=== PATIENT | male | born 1970 | race Caucasian/White ===

== ENCOUNTER 2017-09-23 05:07 | Outpatient (CLI) | payer BC | END 2017-09-23 23:59 | disposition home or self-care (01) | LOC: DIABETIC 05:07 | PROVIDERS: ATTEND Specialist | DX: E11.8 Type 2 diabetes mellitus with unspecified complications (principal) | CPT/HCPCS: G0108 ==

== ENCOUNTER 2017-12-16 03:37 | Outpatient (CLI) | payer BC | END 2017-12-16 23:59 | disposition home or self-care (01) | LOC: DIABETIC 03:37 | PROVIDERS: ATTEND Specialist | DX: E11.9 Type 2 diabetes mellitus without complications (principal) | CPT/HCPCS: G0108 ==

== ENCOUNTER 2018-03-10 01:07 | Outpatient (CLI) | payer BC | END 2018-03-10 23:59 | disposition home or self-care (01) | LOC: DIABETIC 01:07 | PROVIDERS: ATTEND Specialist | DX: E11.65 Type 2 diabetes mellitus with hyperglycemia (principal); Z88.0 Allergy status to penicillin | CPT/HCPCS: G0108 ==

== ENCOUNTER 2018-06-09 02:24 | Outpatient (CLI) | payer BC | END 2018-06-09 23:59 | disposition home or self-care (01) | LOC: DIABETIC 02:24 | PROVIDERS: ATTEND Specialist | DX: E11.65 Type 2 diabetes mellitus with hyperglycemia (principal); Z88.0 Allergy status to penicillin | CPT/HCPCS: G0108 ==

== ENCOUNTER 2018-09-08 11:06 | Outpatient (CLI) | payer BC | END 2018-09-08 23:59 | disposition home or self-care (01) | LOC: DIABETIC 11:06 | PROVIDERS: ATTEND Specialist | DX: E11.65 Type 2 diabetes mellitus with hyperglycemia (principal); Z79.4 Long term (current) use of insulin | CPT/HCPCS: G0108 ==

== ENCOUNTER 2018-12-08 04:37 | Outpatient (CLI) | payer BC | END 2018-12-08 23:59 | disposition home or self-care (01) | LOC: DIABETIC 04:37 | PROVIDERS: ATTEND Specialist | DX: E11.65 Type 2 diabetes mellitus with hyperglycemia (principal); Z79.4 Long term (current) use of insulin; Z88.0 Allergy status to penicillin | CPT/HCPCS: G0108 ==

== ENCOUNTER 2019-03-09 00:31 | Outpatient (CLI) | payer BC | END 2019-03-09 23:59 | disposition home or self-care (01) | LOC: DIABETIC 00:31 | PROVIDERS: ATTEND Specialist | DX: E11.65 Type 2 diabetes mellitus with hyperglycemia (principal); Z79.4 Long term (current) use of insulin; Z88.0 Allergy status to penicillin | CPT/HCPCS: G0108 ==

== ENCOUNTER 2019-06-08 04:09 | Outpatient (CLI) | payer BC | END 2019-06-08 23:59 | disposition home or self-care (01) | LOC: DIABETIC 04:09 | PROVIDERS: ATTEND Specialist | DX: E10.65 Type 1 diabetes mellitus with hyperglycemia (principal); Z79.4 Long term (current) use of insulin; Z79.899 Other long term (current) drug therapy; Z88.0 Allergy status to penicillin | CPT/HCPCS: G0108 ==